=== PATIENT | female | born 2000 | race American Indian/Alaskan Native ===

== ENCOUNTER 2019-04-25 14:53 | Emergency (ER) | payer SELFPAY ==
[2019-04-25 15:01] VITALS: BP 117/62
--- NOTE | 2019-04-25 15:07 | Emergency Department Report ---
Blank Doc - Documentation Documentation: 18-year-old female that presents eye pain and redness to eye with ulcer in daniella earance This initial assessment/diagnostic orders/clinical plan/treatment(s) is/are subject to change based on patient's health status, clinical progression and re- assessment by fellow clinical providers in the ED. Further treatment and workup at subsequent clinical providers discretion. Patient/guardians urged not to elope from the ED as their condition may be serious if not clinically assessed and managed. Initial orders include: 1- Patient sent to [facility] for further evaluation and treatment
--- NOTE | 2019-04-25 16:28 | Emergency Department Report ---
ED Eye Problem HPI - General Chief complaint: Eye Problems Stated complaint: RED SPOT IN EYE Time Seen by Provider: 04/25/19 15:07 Source: patient Mode of arrival: Ambulatory Limitations: No Limitations - History of Present Illness Initial comments: Patient is a 18-year-old female presents to the emergency room with complaints of a small red spot in her right eye that began today. States that her eye feels like a burning and itching sensation. She denies getting anything in the eye. she denies any vision changes, contact lens use, eye drainage. She denies rubbing the eye. She denies any past medical history or allergies medications. She is currently on her menstrual cycle. - Related Data Previous Rx's Medication Instructions Recorded Last Taken Type Ketotifen Fumarate [Zaditor] 1 drop OD BID PRN #1 bottle 04/25/19 Unknown Rx Allergies Allergy/AdvReac Type Severity Reaction Status Date / Time No Known Allergies Allergy Unverified 04/25/19 15:01 ED Review of Systems ROS: Stated complaint: RED SPOT IN EYE Other details as noted in HPI Comment: All other systems reviewed and negative ED Past Medical Hx - Past Medical History Previous Medical History?: No - Surgical History Past Surgical History?: No - Social History Smoking Status: Never Smoker Substance Use Type: None - Medications Home Medications: Home Medications Medication Instructions Recorded Confirmed Last Taken Type Ketotifen Fumarate [Zaditor] 1 drop OD BID PRN #1 bottle 04/25/19 Unknown Rx ED Physical Exam - General Limitations: No Limitations General appearance: alert, in no apparent distress - Head Head exam: Present: atraumatic, normocephalic - Eye Eye exam: Present: PERRL, EOMI, other (very small subconjunctival hemorrhage to the right upper eye, no drainage, no injection, no crusting, no ulceration, no signs of infection). Absent: scleral icterus, conjunctival injection, nystagmus, periorbital swelling, periorbital tenderness - ENT ENT exam: Present: mucous membranes moist - Neurological Exam Neurological exam: Present: alert, oriented X3 - Psychiatric Psychiatric exam: Present: normal affect, normal mood - Skin Skin exam: Present: warm, dry, intact ED Course Vital Signs 04/25/19 04/25/19 15:00 15:02 Temperature 98.6 F 98.5 F Pulse Rate 70 70 Respiratory 18 18 Rate Blood Pressure 117/62 Blood Pressure 117/62 [Left] O2 Sat by Pulse 98 Oximetry ED Medical Decision Making - Medical Decision Making Patient is a 18-year-old female presents to the emergency room with complaints of a small red spot in her right eye that began today. States that her eye feels like a burning and itching sensation. She denies getting anything in the eye. she denies any vision changes, contact lens use, eye drainage. She denies rubbing the eye. She denies any past medical history or allergies medications. She is currently on her menstrual cycle. vitals are normal. on exam: very small subconjunctival hemorrhage to the right upper eye, no drainage, no injection, no crusting, no ulceration, no signs of infection. pt given zaditor for eye relief. advised pt to please use medication as prescribed. do not rub the eyes. follow up with an president + publisher in the next 2-3 days. return to the emergency room for any new or worsening symptoms. - Differential Diagnosis subconjunctival hemorrhage, trauma from eye rubbing, viral Critical care attestation.: If time is entered above; I have spent that time in minutes in the direct care of this critically ill patient, excluding procedure time. ED Disposition Clinical Impression: Subconjunctival hemorrhage of right eye Disposition: DC-01 TO HOME OR SELFCARE Is pt being admited?: No Does the pt Need Aspirin: No Condition: Stable Instructions: Subconjunctival Hemorrhage (ED) Additional Instructions: please use medication as prescribed. do not rub the eyes. follow up with an president + publisher in the next 2-3 days. return to the emergency room for any new or worsening symptoms. Prescriptions: Ketotifen Fumarate [Zaditor] 1 drop OD BID PRN #1 bottle PRN Reason: eye itching Referrals: COLTON GEORGES MD [Staff Physician] - 2-3 Days [facility] [Provider Group] - 2-3 Days Forms: Work/School Release Form(ED) Time of Disposition: 16:29 Print Language: GUAMANIAN
== END 2019-04-25 17:05 | disposition home or self-care (01) ==
LOC: ED 14:53
DX: H11.31 Conjunctival hemorrhage, right eye (principal)
CPT/HCPCS: 99283